=== PATIENT | female | born 1995 | race Asian ===

== ENCOUNTER 2016-08-07 13:52 | Inpatient (IN) | payer BC ==
[~2016-08-07] VITALS: Ht 160 cm; Wt 57.0 kg
[~2016-08-07 13:52] MED LIST: BCPILLS PO; CLIN45GE TOP; DXY50 PO; ESCI1TAB10 PO; IBUP-1050 PO; QUET1TAB32 PO; SPIR50TA2 PO; TRET0.027 TOP; [UNRECOGNIZED DRUG - OTHER] TOP
[2016-08-07 14:46] LABS: BASO % 0.2 %; BASO ABS # 0.02 K/uL (0-0.2); COMPLETE YES; EOS % 0.5 %; IG% 0.2 %; LYMPH % 27.3 %; MEAN CELL VOLUME 89.4 fL (80-100); MEAN CORPUSCULAR HEMOGLOBIN 30.7 pg (25-34); MEAN CORPUSCULAR HGB CONC 34.4 g/dl (32-36); MEAN PLATELET VOLUME 8.8 fL (7.4-10.4); MONO % 5.7 %; NEUT % 66.1 %; PLATELET COUNT 332 K/uL (130-400); RED BLOOD COUNT 4.36 M/uL (4.2-5.4); WHITE BLOOD COUNT 8.06 K/uL (4.8-10.8)
[2016-08-07] MEDS ORDERED: ABL/5 PO (14:54)
[2016-08-07 15:00] LABS: URINE APPEARANCE CLOUDY (CLEAR); URINE COLOR DK YELLOW; URINE EPITHELIAL CELL AUTO >30 /lpf (0-5); URINE NITRITE NEG (NEG); URINE PH 6.5 (4.5-7.5); URINE SPECIFIC GRAVITY 1.029 (1.000-1.030); UROBILINOGEN NEG (NEG)
[2016-08-07 15:06] LABS: BUN/CREATININE RATIO 12.8 (10-20); CALCIUM 8.7 mg/dl (8.5-10.1); CREATININE 0.93 mg/dl (0.60-1.20); POTASSIUM 4.2 mmol/L (3.5-5.1)
[2016-08-07 15:12] LABS: MANUAL MICROSCOPIC REQUIRED? NO; REVIEW REQ? YES; URINE BILIRUBIN NEG (NEG)
[2016-08-07 15:17] LABS: THYROID STIMULATING HORMONE 2.72 uIu/ml (0.300-4.500)
[2016-08-07 15:23] LABS: URINE MUCUS PRESENT (NONE PRSENT)
[2016-08-07 15:33] LABS: BENZODIAZEPINE, URINE NEG (NEG); COCAINE,URINE NEG (NEG); PHENCYCLIDINE, URINE NEG (NEG)
[2016-08-07 15:46] LABS: PREG INTERNAL NEGATIVE QC NEG CLEAR BACKGROUND; PREG INTERNAL POSITIVE QC POS CONTROL LINE
[2016-08-07] MEDS ORDERED: QUET1TAB34 PO (15:46)
[2016-08-07] MEDS ORDERED: BENZOYL PEROXIDE SCH (16:00)
[2016-08-07] MEDS ORDERED: NURSING VERBAL MED ORDER ONE (16:00)
[2016-08-07] MEDS ORDERED: CLINDAMYCIN PHOSPHATE SCH (16:00)
[2016-08-07] MEDS ORDERED: BISMUTH SUBSALICYLATE PER ML OMNICELL CHARGE PO PRN (16:30)
[2016-08-07] MEDS ORDERED: ACETAMINOPHEN 325 MG TAB PO PRN (16:30)
[2016-08-07] MEDS ORDERED: SODIUM CHLORIDE 0.65% NA SOLN 45 ML (OCEAN) PRN (16:30)
[2016-08-07] MEDS ORDERED: hydrOXYzine HCL 25 MG TAB PO PRN ×2 (16:30)
[2016-08-07] MEDS ORDERED: ALUMINUM/MAGNESIUM SUSP 30 ML UDC PO PRN (16:30)
[2016-08-07] MEDS ORDERED: SPIRONOLACTONE 25 MG TAB PO ONE (16:30)
[2016-08-07] MEDS ORDERED: DOXYCYCLINE HYCLATE 50 MG CAP PO ONE (16:30)
[2016-08-07] MEDS ORDERED: IBUPROFEN 200 MG TAB PO PRN (16:30)
[2016-08-07] MEDS ORDERED: MAGNESIUM HYDROXIDE SUSP 30 ML UDC PO PRN (16:30)
[2016-08-07 18:18] VITALS: O2SAT 100
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
[2016-08-07 19:40] VITALS: BP 124/84; PULSE 80; TEMP 36.8; Ht 160 cm; Wt 57.0 kg
[2016-08-07] MEDS ORDERED: QUETIAPINE FUMARATE 100 MG TAB PO SCH (21:00)
[2016-08-07] MEDS: DOXYCYCLINE HYCLATE 50 MG CAP PO SCH (21:32)
[2016-08-07] MEDS: SPIRONOLACTONE 25 MG TAB PO SCH (21:33)
[2016-08-07] MEDS: BENZOYL PEROXIDE EXT SCH (22:00)
[2016-08-07] MEDS: CLINDAMYCIN EXT SCH (22:00)
[2016-08-08 06:53] VITALS: BP_SYST 133; BP_DIAS 89; BP_DIAS 95; PULSE 80; PULSE 88; TEMP 36.8
[2016-08-08] MEDS ORDERED: [UNRECOGNIZED DRUG - REMARK] PO SCH (08:00)
[2016-08-08] MEDS ORDERED: [UNRECOGNIZED DRUG - OTHER] SCH (08:00)
[2016-08-08] MEDS ORDERED: [UNRECOGNIZED DRUG - OTHER] SCH (08:00)
[2016-08-08] MEDS ORDERED: APPLN SCH (08:00)
[2016-08-08] MEDS ORDERED: ARIPIprazole TAB 5 MG TAB PO SCH (09:00)
[2016-08-08] MEDS: CONTRACEPTIVE PO SCH (09:00)
[2016-08-08] MEDS: ESCITALOPRAM OXALATE 20 MG TAB PO SCH (09:30)
[2016-08-08] MEDS: SPIRONOLACTONE 25 MG TAB PO SCH ×2 (09:30→17:26)
[2016-08-08] MEDS: DOXYCYCLINE HYCLATE 50 MG CAP PO SCH ×2 (09:30→17:30)
[2016-08-08] MEDS: BENZOYL PEROXIDE EXT SCH ×2 (11:26→20:57)
[2016-08-08] MEDS: CLINDAMYCIN EXT SCH ×2 (11:26→20:57)
[2016-08-08] MEDS ORDERED: ARIPIprazole TAB 5 MG TAB PO ONE (14:00)
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
[2016-08-08] MEDS ORDERED: TRETINOIN EXT SCH (22:00)
[2016-08-08] MEDS ORDERED: QUETIAPINE FUMARATE 25 MG TAB PO SCH (22:00)
[2016-08-09 06:28] VITALS: BP 121/85; PULSE 80; TEMP 37
[2016-08-09 07:06] LABS: CHOLESTEROL/HDL RATIO 2.1
[2016-08-09] MEDS ORDERED: ARIPIprazole TAB 5 MG TAB PO SCH (09:00)
[2016-08-09] MEDS: SPIRONOLACTONE 25 MG TAB PO SCH (10:29)
[2016-08-09] MEDS: ESCITALOPRAM OXALATE 20 MG TAB PO SCH (10:30)
[2016-08-09] MEDS: CONTRACEPTIVE PO SCH (10:30)
[2016-08-09] MEDS: DOXYCYCLINE HYCLATE 50 MG CAP PO SCH (10:30)
[2016-08-09] MEDS: CLINDAMYCIN EXT SCH (10:55)
[2016-08-09] MEDS: BENZOYL PEROXIDE EXT SCH (10:55)
[2016-08-09] MEDS ORDERED: ATR25 PO (15:03)
[2016-08-09] MEDS ORDERED: SRQ25 PO (15:03)
[2016-08-09] MEDS ORDERED: ARIP1TAB8 PO (15:03)
--- NOTE | 2016-08-09 15:18 | Discharge Instructions ---
Discharge Information Report Includes Report will include the: Discharge Instructions & Summary Admission Admission Date / Time: August 07, 2016 at 16:27 Reason for Admission: Suicidal Ideation Discharge Discharge Diagnosis / Problem: Bipolar D/O unspecificed, Anxiety Disorder, unspecificed Condition at Discharge: improved Discharge Goals Goal(s): Improve function Activity Recommendations Activity Limitations: resume your previous activity Lifting Limitations: none Exercise/Sports Limitations: none Driving or Machine Use: do not drive if sedated or lightheaded or dizzy . Instructions / Follow-Up Instructions / Follow-Up . SPECIAL CARE INSTRUCTIONS: 1. Follow through with your scheduled aftercare appointments. If unable to keep an appointment, please call to reschedule. 2. Take your medication only as prescribed. Medication should not be changed or stopped without the approval of your doctor. In the event of worsening symptoms or concerns about side effects, contact your doctor immediately. 3. Utilize new healthy coping skills, anger management skills, and stress management skills learned during your hospitalization. Journal feelings and process them with a support person. Identify stressors or situations that may result in relapse, deterioration or inappropriate behaviors and develop a plan to deal with those issues. 4. If your coping skills are ineffective and you are in crisis, contact your outpatient providers for direction. If unable to reach your providers, please call the CAN HELP LINE AT or go to the closest Emergency Room. 5. Avoid alcohol and un-prescribed drugs. 6. You have been provided with the Mental Health Advance Directives Pamphlet for your review. AFTERCARE APPOINTMENTS: * Please call your insurance company prior to your scheduled appointment to confirm your aftercare providers are covered. Take your insurance information to your appointments. . Discharge / Aftercare Planning Primary Care Physician: Name: Kristine Garcia Therapist: Name Of Therapist: Sendy Velez . Follow-Up Care Plan for Follow-Up Care: Attend Dr Garcia psychiatric medication management appt 08/11 and [facility] Velez psychotherapy appointment take meds as rx'd Current Hospital Diet Patient's current hospital diet: Regular Diet Discharge Diet Recommended Diet: Regular Diet Procedures Procedures Performed: No Pending Studies Pending Studies at Discharge: No Medical Emergencies . Who to Call and When: Medical Emergencies: For questions or emergencies related to your hospital stay, please contact the Inpatient Behavioral Health Unit at [phone]. A patient scheduler is on-call 05/10 for the Behavioral Health Unit for emergencies At any time you feel your situation is an emergency, you may also call 911 immediately. . 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 Advance Directives Reason: Declines as Mental Health Visit. Discharge Summary Admission HPI Per the Admitting provider: Zeferino is a 20 year old female who is a outpt of Dr. Garcia who was referred to the ER by Dr. Garcia from her appointment with having her parents bringing her to the Er from the office due to her SI at time of the appointment. She has bipolar d/o nos (R/O bipolar d/o type II) who has been more depressed for at least the past month. She broke up with her boyfriend on evening ( the night prior to be in the ER in a reported mutual manner over pt's displeasure of aspects of the relationship. She has been hoping for improvement in the relationship and felt distressed over the breakup and this brought out her SI. She had endorsed thoughts of slicing her wrist with a razor blade or jumping in front of traffic and had stayed at her now ex-bf's house over night to help her feel safe. 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 HOWever she is now describing these as without actual full intent since wanted to hurt her boyfriend over their break up. The break up was due to his depression and how he has not been engaging enough with her and been irritable with her lately. She would prefer to be together with him but with him acting differently then has been. She endorsed having bipolar d/o and endorsed a tendency to have more energy and delayed sleep and times independent of energy level of racing thoughts and also times of spending sprees. She denied h/o other hypomanic symptoms but endorsed not being sure about this. She has h/o OCD symptoms tied to cleanliness that is rather treated but adds to her discomfort of being in the hospital per pt. She feels that Seroquel and lexapro treat her OCD symptoms. She has been on lexapro for a number of years at 20mg a day. She has failed prior ssri trials. She has been on seroquel in the past with good results and improved sleep but can oversleep some and can feel somewhat tired throughout the morning. She has tried lamictal, latuda, risperdal to replace seroquel but has failed each of those meds (ineffective, s/ e) and has recent been put back on seroquel (100mg hs) a bit over a month ago, but complained of fatigue (from depression but worsened since on Seroquel per Dr. Garcia) and Dr. Garcia added abilify at 5mg at the beginning of July 2016 with aim to raise in the near future and as tolerating to wan off Seroquel. Pt has good full med compliance and denied other s/e to her meds. She has had a few panic attacks over the years. She denied ED symptoms, she denied h/o psychotic features She alternated in the ER about her admission and her ambivalence lead the nurse liaison and outpt providers to set up outpt plan with family support but she then agreed fully to admission. However once admitted, she got anxious and voied desire to leave and got agitated and grabbed her belongings including her medication containers and made threatening comments to staff with security needing to be present for her to be contained. Today she has been trying to minimize some of the suicidal comments with a focus of aiming for discharge but as getting comfortable on the unit is more engaging in treatment and agreeing to the treatment plan. She did a sign a 72 hour notice Wednesday mooring approx 11:30am with release and consent spoke to and reviewed pt's psychiatric history and presentation and medication responses. Pt has mood lability and symptoms suggestive of bipolar spectrum r/o bipolar II with worsening depressive episode and tendency towards mild hypomanic like activation at least 3 times. Struggles most severely during times of interpersonal tension/ break up of intimate relationship. Has done well on Lexapro with seroquel, but Seroquel was too sedating and lead to oversleeping and some daytime fatigue leading pt to seek replacement meds but failed risperdal, latuda and lamictal with s/e and lack of effectiveness. In coordinating care plan of weaning off seroquel and titrating up Abilify to 10mg from current 5mg with maintaining lexapro. Hospital Course (1) Mood disorder 08/08 - coordinate with outpt providers. - informed consent to lower seroquel , pt preferred to lower to 25mg hs tonight from 100mg hs dose -raise Abilify to 10mg daily, with today taking 10mg total dose -continue lexapro 20mg daily for now for depression, anxiety and OCD features -fasting glucose and lipids for being on atypical antipsychotic and in midst of cross taper -family meeting -pt signed 72 hours approx 11:30am 08/08 -aftercare with Dr. Garcia, appt scheduled for 08/11 pm. attmepting to move up next appt with therapist Sendy Velez, 08/09 pt took vistaril 25mg then 50mg in early and mid evening last night, that appeared to help settle her and slept fine with also taking seroquel 25mg hs pt taking abilify 10mg qd without issue denied SI, did safety plan, had family meeting with parents with staff, plans to attend work , connect with friends, limited connect with ex-bf to share about hospital course but then aims to not have contact, can help if needed and to use paretnal emotional support, parents comfortable with pt being discharged with pt living with parents denied si pt plans to 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 and to attend upcoming work shifts seeking to attend outpt appts feels less depressed and less anxious (2) Suicidal ideation 201 admission q15 minute checks coordinate with outpatient providers safety plan address acute stressor of breakup with boyfriend enlist family support family meeting 08/09 SI continues to be resolved and making appropriate safety plan and adjustments family meeting 08/09 with staff (3) Acne continue outpt medications (4) OCD (obsessive compulsive disorder) continue lexapro 20mg qd Risk Factors Assessment : No Health problems: No Mental Health Diagnoses: Yes Substance use disorders: No Previous attempt: No Hopelessness: Yes Protective Factors Assessment Supportive family: Yes Day of Discharge Assessment Pt is calmer, constricted affect that is without distress. Denied SI, that appears to have resolved by time of admission, contracts for safety and plans to use safety plan and other peers and family as resources. Will limit her contact with ex-bf and connected to attending her job duties. She slept fine last night and aiming to wean off seroquel and comfortable with Seroquel 25mg hs for next couple nights till appointment with Dr. Garcia on Friday 08/11. establishing earlier appt with Sendy Velez for psychotherapy. Attended brief family meeting with staff today and parents comfortable with discharge today and noticing some improvements and aware and comfortable with some possible mood lability and anxiousness that can occur as discharges. Pt contracts for safety. NO psychotic features, no manic features. OCD aspects adds to tension of being inpt but pt tolerating. seeking discharge, and 72 notice signed yesterday at approx 11:30am. Pt is not considered an imminent risk and is appropriate for discharge at this time and will thus discharge. She is tolerating Abilify at 10mg qdaily to date and tolerating reduction of Seroquel to 25mg qhs as of last night with vistaril 25-50mg doses for anxiety/insomnia. Aim is to continue seroquel 25mg hs for next 2 nights till able ot see Dr. Garcia on 08/11/16 with likelihood that Seroquel will then be ceased and abilify continued if pt tolerating plan. Vistaril 25mg 1-2 po qhours prn anxiety/ insomnia to be provided at discharge to help with anxiety/insomnia with above med changes and psychosocial stressors. Laboratory Test 08/07/16 14:20 08/07/16 14:30 08/09/16 06:10 Urine Color DK YELLOW Urine Appearance CLOUDY Urine pH 6.5 Urine Specific [place] 1.029 Urine Protein 1+ Urine Glucose (UA) NEG Urine Ketones 3+ Urine Occult Blood NEG Urine Nitrite NEG Urine Bilirubin NEG Urine Urobilinogen NEG Urine Leukocyte Esterase NEG Urine WBC (Auto) 1-5 Urine RBC (Auto) 0-4 Urine Hyaline Casts (Auto) 0 Urine Epithelial Cells (Auto) >30 Urine Bacteria (Auto) 1+ Urine Renal Epithelial Cells Urine Pathogenic Casts Urine Mucus PRESENT Urine Test NEG Urine Opiates Screen NEG Urine Methadone, Qualitative NEG Urine Barbiturates NEG Urine Phencyclidine (PCP) Level NEG Ur Amphetamine/Methamphetamine NEG MDMA (Ecstasy) Screen NEG Urine Benzodiazepines Screen NEG Urine Cocaine Metabolite NEG Urine Marijuana (THC) NEG White Blood Count 8.06 Red Blood Count 4.36 Hemoglobin 13.4 Hematocrit 39.0 Mean Corpuscular Volume 89.4 Mean Corpuscular Hemoglobin 30.7 Mean Corpuscular Hemoglobin Concent 34.4 Platelet Count 332 Mean Platelet Volume 8.8 Neutrophils (%) (Auto) 66.1 Lymphocytes (%) (Auto) 27.3 Monocytes (%) (Auto) 5.7 Eosinophils (%) (Auto) 0.5 Basophils (%) (Auto) 0.2 Neutrophils # (Auto) 5.32 Lymphocytes # (Auto) 2.20 Monocytes # (Auto) 0.46 Eosinophils # (Auto) 0.04 Basophils # (Auto) 0.02 RDW Standard Deviation 38.4 RDW Coefficient of Variation 11.8 Immature Granulocyte % (Auto) 0.2 Immature Granulocyte # (Auto) 0.02 Sodium Level 141 Potassium Level 4.2 Chloride Level 107 Carbon Dioxide Level 29 Anion Gap 5.0 Blood Urea Nitrogen 12 Creatinine 0.93 Est Creatinine Clear Calc Drug Dose 78.5 Estimated GFR () 101.1 Estimated GFR (Non- 87.2 BUN/Creatinine Ratio 12.8 POC Glucose 97 Random Glucose 91 Calcium Level 8.7 Total Bilirubin 0.7 Direct Bilirubin 0.1 Aspartate Amino Transferase (AST) 15 Alanine Aminotransferase (ALT) 20 Alkaline Phosphatase 29 Total Protein 7.3 Albumin 3.8 Thyroid Stimulating Hormone (TSH) 2.720 Ethyl Alcohol mg/dL < 3.0 Fasting Glucose 87 Triglycerides Level 87 Cholesterol Level 147 HDL Cholesterol 71 LDL Cholesterol, Calculated 59 VLDL Cholesterol, Calculated 17 Cholesterol/HDL Ratio 2.1 Total Time Total Time Spent (min): Greater than 30 minutes Total Time Included: examination of the patient, discharge planning, medication reconciliation Tobacco Cessation at Discharge Smoking Status: Never Smoker FDA approved Prescription: non-smoker
== END 2016-08-09 15:40 | disposition home or self-care (01) | DRG 885 ==
LOC: ENRESERVDT → ENRESERVTM → C.EDB 13:53 → C.MHU 16:27
PROVIDERS: ADMIT Psychiatry & Neurology Psychiatry; ATTEND Psychiatry & Neurology Psychiatry
DX: F31.9 Bipolar disorder, unspecified (principal); R45.851 Suicidal ideations; F41.9 Anxiety disorder, unspecified; F42.9 Obsessive-compulsive disorder, unspecified; L70.9 Acne, unspecified; Z91.5 Personal history of self-harm; Z63.9 Problem related to primary support group, unspecified; Z79.2 Long term (current) use of antibiotics; Z79.3 Long term (current) use of hormonal contraceptives; Z79.899 Other long term (current) drug therapy